=== PATIENT | female | born 1955 | race Caucasian/White ===

== ENCOUNTER → 2016-07-30 | Outpatient (CLI) | payer BC | LOC: MC.RAD 14:08 | DX: Z12.31 Encounter for screening mammogram for malignant neoplasm of breast (principal) ==

== ENCOUNTER 2017-10-22 23:23 | Emergency (ER) | payer BC ==
[~2017-10-22] VITALS: Ht 167.6 cm; Wt 50.0 kg
[2017-10-22 23:34] VITALS: TEMP 97.9
[2017-10-23] MEDS ORDERED: SINGULAIR 110 MG/TAB PO (02:18)
[2017-10-23] MEDS ORDERED: MAXALT10 MG PO (02:18)
[2017-10-23 06:48] VITALS: BP 109/75; PULSE 53
== END 2017-10-23 07:09 | disposition home or self-care (01) ==
LOC: COL.ER 23:23
DX: H33.21 Serous retinal detachment, right eye (principal); H54.7 Unspecified visual loss

== ENCOUNTER → 2018-09-08 | Outpatient (CLI) | payer BC ==
[~2018-09-08] MED LIST: MAXALT10 MG PO; SINGULAIR 110 MG/TAB PO
== END ==
LOC: MC.RAD 11:25
DX: Z12.31 Encounter for screening mammogram for malignant neoplasm of breast (principal)